=== PATIENT | male | born 1955 | race Caucasian/White ===

== ENCOUNTER 2025-08-04 07:31 | Outpatient (CLI) | payer MEDICARE | END 2025-08-04 07:32 | disposition home or self-care (01) | LOC: SCSULT 07:31 | PROVIDERS: ATTEND Student in an Organized Health Care Education/Training Program | DX: K40.20 Bilateral inguinal hernia, without obstruction or gangrene, not specified as recurrent (principal); K42.9 Umbilical hernia without obstruction or gangrene | CPT/HCPCS: 76705; 93976 ==